=== PATIENT | male | born 1970 | race Caucasian/White ===

== ENCOUNTER → 2023-08-09 | Outpatient (CLI) | payer BC ==
--- NOTE | 2023-08-09 17:39 | NM ---
EXAMINATION TYPE: NM stress cardiolite complete DATE OF EXAM: 08/09/2023 COMPARISON: NONE CLINICAL INDICATION: Male, 52 years old with history of R07.9 CHEST PAIN, UNSPECIFIED; TECHNIQUE: After the intravenous administration of 9.8 mCi Tc 99m Sestamibi - Rest images obtained 4 5 minutes post injection. The patient exercised using a YOUSIF protocol and 1 minute prior to peak e xercise was injected with 24.8 mCi Tc 99m Sestamibi - Stress images obtained 20 minutes post injectio n. FINDINGS: Targeted heart rate (141 BPM) was achieved during performance of the study (149 BPM). Total exercise time 8 minutes. Review of stress and rest SPECT images demonstrates no distinct perfusion abnormality . Gated analysis shows normal wall motion with an estimated left ventricular ejection fraction of 57 %. TID is calculated at 0.75. IMPRESSION: No scintigraphic evidence for reversible ischemia
--- NOTE | 2023-08-10 11:08 | CA ---
Exercise Nuclear Stress Test Report Name: Kenny Lawton Exam Date: 08/09/2023 10:25 Exam Location: [facility] Ht (in): 67 Wt (lb): 220 BSA: 2.11 Ordering Phys: Mick Chowdhury MD Referring Phys: MICK CHOWDHURY Technologist: MARELY Age: 52 Gender: M : 1970 Procedure CPT: Indications: R07.9 CHEST PAIN, UNSPECIFIED ICD-10 Codes: Patient History: Chest pain Medications: Meds past 24 hrs: Pretest Chest Pain: STRESS TEST Mohsen Protocol Exercise Duration (min:sec): 08:[address] Depressions (mm): Angina Score: Espino Score: Resting HR (bpm): 88 Peak HR (bpm): 149 Resting BP (mmHg): 141 / 107 Peak BP (mmHg): 200 / 97 MPHR: 166 Target HR: 141 % MPHR: 90 METS: 10.3 Total Dose: Peak Dose: Atropine: Double Product: 66118 BP Response: Stress Termination: Reached target heart rate Stress Symptoms: No chest pain or symptoms Stress Summary: ECG ANALYSIS Resting ECG: Stress ECG: CONCLUSIONS Exercise stress test Baseline heart rate 88 beats a minute, Baseline blood pressure 146 108 mmHg Baseline twelve-lead EKG shows sinus rhythm normal [place] narrow QRS normal ST segments There is no ECG is for ischemia No arrhythmias noted Peak blood pressure 200/100 mmHg Patient achieved 10.3 METs of workload, exercised 8 minutes on a Mohsen protocol Dr. Arturo Lorenzo MD (Electronically Signed) Final Date: 10 August 2023 11:07
== END | disposition home or self-care (01) ==
LOC: RADNMMAIN 07:45
PROVIDERS: ATTEND Family Medicine
DX: I49.8 Other specified cardiac arrhythmias (principal); R94.31 Abnormal electrocardiogram [ECG] [EKG]; R07.9 Chest pain, unspecified; E66.9 Obesity, unspecified; E78.00 Pure hypercholesterolemia, unspecified
CPT/HCPCS: 93017; 78452; A9500